=== PATIENT | male | born 1995 | race Caucasian/White ===

== ENCOUNTER 2017-09-17 21:02 | Emergency (ER) | payer OTHER ==
[2017-09-17 21:05] VITALS: BP 136/75; PULSE 88; RESP 16; TEMP 98.2; O2SAT 97
--- NOTE | 2017-09-17 21:17 | EDPHY ---
H & P Time Seen by Provider: 09/17/17 21:08 HPI/ROS: CHIEF COMPLAINT: Laceration right thumb HISTORY OF PRESENT ILLNESS: 21-year-old immunocompetent male with up-to-date tetanus, right-hand dominant, was at work at [employer] and sustained accidental laceration to his right thumb when he was caring a plate and the plate broke. He is complaining of decreased sensation distally. No flexor or extensor deficits at the MCP or IP. PHYSICAL EXAM (Prior to examination, patient consented to physical exam, hands were washed and my usual and customary physical exam procedures followed) 1) GENERAL: Well-developed, well-nourished, alert and oriented. Appears to be in no acute distress. 2) HEAD: Normocephalic 3) HEENT: sclera anicteric 4) LUNGS: Breathing comfortably. 5) SKIN: Right thumb distal phalanx transverse 3 cm laceration. 6) MUSCULOSKELETAL: Flexor function at the MCP and IP are intact with no deficits. 7) NEUROLOGIC: Decreased sensation two-point discrimination distally. Smoking Status: Never smoked Constitutional: Initial Vital Signs Temperature (C) 36.8 C 09/17/17 21:03 Heart Rate 88 09/17/17 21:03 Respiratory Rate 16 09/17/17 21:03 Blood Pressure 136/75 H 09/17/17 21:03 O2 Sat (%) 97 09/17/17 21:03 O2 Delivery Mode Room Air Allergies/Adverse Reactions: avocado Allergy (Verified 02/20/16 04:29) Home Medications: Medication Instructions Recorded NK [No Known Home Meds] 02/20/16 MDM/Departure - [facility] Imaging Results: Xray of the right thumb interpreted by myself: no definitive acute osseous abnormality or radiopaque foreign body Imaging: I viewed and interpreted images myself Procedures: Procedure: Laceration repair. I explained the indications, risks and benefits for both laceration repair and anesthetic administration. Verbal consent was obtained from the patient. The laceration on the right thumb was anesthetized using 0.5% bupivicaine without epinephrine digital nerve block. After anesthetic administered the patient was observed for a period of time and had no apparent adverse effects. The wound was cleaned, prepped, draped in normal sterile fashion and explored to its base. No foreign body seen, no foreign bodies palpated. There were no deep structures involved. No tendon injury was identified. The wound was repaired with 7 simple interrupted 5-O Ethilon sutures . The wound repair was simple. The procedure was performed by myself. Patient has been informed that scarring will occur, although efforts have been made to minimize this. - Depart Disposition: Home, Routine, Self-Care Clinical Impression: Laceration of right thumb Qualifiers: Encounter type: initial encounter Damage to nail status: without damage Foreign body presence: without foreign body Qualified Code(s): S61.011A - Laceration without foreign body of right thumb without damage to nail, initial encounter Condition: Good Instructions: Care For Your Stitches (ED), Laceration (ED) Additional Instructions: Return to the ER if you develop redness, swelling, discharge, warmth to the wound, red streaks going up your arm, or any other symptoms that concern you. Referrals: Return, to the ER in 10 days for suture removal [Other] - 09/27/17
== END 2017-09-17 21:48 | disposition home or self-care (01) ==
PROC: 0HQFXZZ Repair Right Hand Skin, External Approach (ICD-10-PCS; principal; 2017-09-17)
DX: S61.011A Laceration without foreign body of right thumb without damage to nail, initial encounter (principal); W26.8XXA Contact with other sharp object(s), not elsewhere classified, initial encounter; Y92.511 Restaurant or cafe as the place of occurrence of the external cause; Y99.0 Civilian activity done for income or pay; Y93.89 Activity, other specified